=== PATIENT | female | born 1990 | race American Indian/Alaskan Native ===

== ENCOUNTER 2016-08-03 09:15 | Inpatient (IN) | payer MEDICAID ==
--- NOTE | 2016-07-27 14:47 | History and Physical Report ---
History of Present Illness Date of examination: 07/27/16 Date of admission: 08/03/2016 Chief complaint: 25 yo at 39 wk 0d admitted for electiver repeat c/s and BTL. She has chronic HTN but has been on no meds during this except for low dose aspirin for prevention of Pre-eclampsia. [facility] M[facility] , did recieve Rhogam at 28 wk EGA, Rub Im, hx anemia this with most recent Hct 28. Treated for Chlamydia in early with negatve JUAN. GBS done 07/29 and neg. Pt seen and examined DOS and no changes noted. 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 Weight (lb): 272 BMI: 44 BP: 142/ 78 mm Hg Ur. Protein: trace Ur. Glucose: negative Chief Complaint/Current Status: pt presents c/o Missed Period; no c/o's ...................................................................Ina Le December 30, 2015 2:08 PM last depo-provera 2014 last papsmear 6 mos ago @[facility] Menstrual History Regularity: regular Menses every: 28 days Duration: 5 LMP: 10/24/2015 LMP reliability: definite LMP character: normal test type: urine test Date: 12/30/2015 BC at conception: none Planned ? no EDC Calculations LMP: 07/30/2016 EDC Confirmation: 08/10/2016 Gestational Age: 8 weeks Past History : 3 Term Births: 1 Premature Births: 1 Living Children: 2 Para: 2 Mult. Births: 0 Prev : 2 Prev. attempt? 0 Aborta: 0 Elect. Ab: 0 Spont. Ab: 0 Ectopics: 0 # 1 Delivery date: 02/20/2007 Weeks Gestation: 32 labor: no Delivery type: Anesthesia type: general [place] [facility] [place]: Male weight: 3-0 Name: Nolan Comments: eclampsia # 2 Delivery date: 11/27/2008 Weeks Gestation: 39 Delivery type: Anesthesia type: spinal Delivery location: [place] [facility] Sex: Female weight: 5-13 Name: Chino Past Medical History: Hypertension Past Surgical History: (2007) (2008) Past Medical History Surgery (Non-oncologist): (2007) (2008) Abnormal PAP: positive, HPV Uterine Anomaly: negative Social Hx: Rommel Patient is single Infection History Hx of STD: HPV HIV Risk Eval: low risk Hepatitis B Risk Eval: low risk Personal hx. of genital herpes: yes Partner hx. of genital herpes: no Genetic History Congenital Heart Defect: Mom: no Dad: no Yumiko Disease: Mom: no Dad: no Thalassemia Mom: no Dad: no Neural Tube Defect Mom: no Dad: no Down's Syndrome Mom: no Dad: no Han-Sachs Mom: no Dad: no Sickle Cell Disease/Trait Mom: no Dad: no Hemophilia Mom: no Dad: no Muscular Dystrophy Mom: no Dad: no Cystic Fibrosis Mom: no Dad: no [place] Chorea Mom: no Dad: no Mental Retardation Mom: no Dad: no Fragile X Mom: no Dad: no Other Genetic/Chromosomal Disorder Mom: no Dad: no Child w/other defect Mom: no Dad: no Current Allergies: No known allergies Laboratory Results Routine Urinalysis Leukocytes: trace Nitrite: negative Urobilinogen: negative Protein: trace Blood: negative Ketone: trace (5) Bilirubin: negative Glucose: negative Urine HCG: positive Review of Systems General Complains of fatigue. Denies fever, chills, sweats, anorexia, weakness, malaise, weight loss and sleep disorder. Denies vaginal discharge, incontinence, dysuria, hematuria, urinary frequency, amenorrhea, menorrhagia, abnormal vaginal bleeding, pelvic pain, genital sores, decreased libido, painful periods, painful sex, urinary urgency, hot flashes, vaginal dryness, vaginal itching and vaginal odor. CV Denies chest pains, palpitations, syncope, dyspnea on exertion, orthopnea, PND and peripheral edema. Resp Denies cough, dyspnea at rest, excessive sputum, hemoptysis, wheezing and pleurisy. GI Complains of nausea. Denies vomiting, diarrhea, constipation, change in bowel habits, abdominal pain, melena, hematochezia, jaundice, gas/bloating, indigestion/heartburn, dysphagia and odynophagia. Breast Complains of breast pain. Denies left breast lump, right breast lump, nipple discharge, bloody discharge from nipple, abnormal mammogram and breast enlargement. Psych Denies depression, anxiety, irritability and mood swings. PHYSICAL EXAM HEENT: normocephalic, no lesions or deformities pierced tongue Neck/Thyroid: supple, thyroid normal Skin no significant abnormal lesions or rashes .Tatoo(s) are present Chest: respiratory effort normal, clear to auscultation Breasts: skin/areolae normal, no masses, no nipple discharge, no erythema/warmth /tenderness, and axillae normal. 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 Vulva/Vagina: No lesions, normal BUS, normal rugae Cervix: No lesions; no cervical motion tenderness Uterus: unable to palpate due to obesity Adnexae: unable to palpate due to obesity Rectovaginal: exam defered Flowsheet View for Follow-up Visit Estimated weeks of gestation: 8 Weight: 272 Blood pressure: 142 / 78 Urine protein: trace Urine glucose: negative Urine nitrite: negative Medications and Allergies Allergies Allergy/AdvReac Type Severity Reaction Status Date / Time No Known Allergies Allergy Verified 08/03/16 09:27 Home Medications Medication Instructions Recorded Confirmed Last Taken Type No Known Home Medications [No 08/03/16 08/03/16 Unknown History Reported Home Medications] Results All other labs normal. Assessment and Plan - Patient Problems (1) Previous delivery affecting , antepartum Current Visit: Yes Status: Chronic (2) Encounter for sterilization Current Visit: Yes Status: Acute (3) Hypertension affecting in third trimester Current Visit: Yes Status: Chronic (4) Anemia affecting in third trimester Current Visit: Yes Status: Chronic (5) Term Current Visit: Yes Status: Acute
[~2016-08-03 09:15] MED LIST: ANCEF/STERILE WATER 2 GM/20 ML 2 GM/20 ML SYRINGE IV NR; BICITRA PO ONE; LACTATED RINGERS 1,000 ML IV SCH; PEPCID IV ONE; PITOCin/NS 20 UNIT/1000ML DRIP 20 UNITS/1,000 ML BAG IV SCH; REGLAN IV ONE
[2016-08-03] MEDS ORDERED: LACTATED RINGERS 2,000 ML ONE (09:29)
[2016-08-03] MEDS ORDERED: LACTATED RINGERS 1,000 ML ONE (09:31)
[2016-08-03] MEDS ORDERED: PEPCID IV ONE (10:03)
[2016-08-03] MEDS ORDERED: REGLAN IV ONE (10:03)
[2016-08-03] MEDS ORDERED: PITOCin/NS 20 UNIT/1000ML DRIP 20 UNITS/1,000 ML BAG IV SCH ×2 (11:00→14:00)
[2016-08-03] MEDS ORDERED: LACTATED RINGERS 1,000 ML IV SCH (11:00)
[2016-08-03 11:01] LABS: Eosinophils % (Auto) 0.6 % (0.0-4.3)
[2016-08-03 11:03] LABS: Hematocrit 26.9 % (30.3-42.9); Mean Corpuscular Volume 65 fl (79-97); Red Blood Count 4.16 M/mm3 (3.65-5.03); White Blood Count 9.1 K/mm3 (4.5-11.0)
[2016-08-03 11:04] LABS: Basophils % (Auto) 0.2 % (0.0-1.8); Mean Corpuscular HGB Conc 30 % (30-34); Mean Corpuscular Hemoglobin 19 pg (28-32); Mean Platelet Volume 8.8 fl (6-12); Platelet Count 289 K/mm3 (140-440); Red Cell Distribution Width 18.3 % (13.2-15.2)
[2016-08-03] MEDS ORDERED: ZOVIRAX 500 MG in NACL 0.9% 100 ML IV ONE (11:06)
[2016-08-03] MEDS ORDERED: GELFOAM POWDER 1GM MM ONE (11:13)
[2016-08-03] MEDS ORDERED: ANCEF/STERILE WATER 2 GM/20 ML 2 GM/20 ML SYRINGE IV ONE (11:14)
[2016-08-03] MEDS ORDERED: BICITRA ONE (11:14)
--- NOTE | 2016-08-03 11:14 | Anesthesia Consultation ---
Anesthesia Consult and Med Hx - Airway Anesthetic Teeth Evaluation: Poor (broken upper and lower on right and left) - Pulmonary Exam CTA: Yes - Cardiac Exam Cardiac Exam: RRR - Pre-Operative Health Status ASA Pre-Surgery Classification: ASA3 Proposed Anesthetic Plan: Epidural, Spinal (Patient has had blocks with previous c-sections - combined is planned) - Pulmonary Hx Asthma: No COPD: No Hx Pneumonia: No - Cardiovascular System Hx Hypertension: Yes (history - watched during - not on meds) - Endocrine Hx End Stage Renal Disease: No - Additional Comments Anesthesia Medical History Comments: patient has had 2 c-sections in past with regional anesthesia platelets are 289
[2016-08-03] MEDS ORDERED: THROMBIN (BOVINE) TP ONE ×3 (11:15→14:00)
--- NOTE | 2016-08-03 11:15 | Anesthesia Day of Surgery ---
Anesthesia Day of Surgery - Day of Surgery Patient Examined: Yes Patient H&P Reviewed: Yes Patient is NPO: Yes
[2016-08-03] MEDS ORDERED: MORPHINE ONE (11:18)
[2016-08-03] MEDS ORDERED: ANCEF/STERILE WATER 2 GM/20 ML IV ONE (11:43)
[2016-08-03] MEDS ORDERED: WATER FOR IRRIG STERILE IR ONE (11:50)
[2016-08-03] MEDS ORDERED: NACL 0.9% IR ONE (11:50)
[2016-08-03] MEDS ORDERED: NACL 0.9% 100 ML ONE (12:06)
[2016-08-03] MEDS ORDERED: NEO SYNEPHRINE ONE (12:06)
--- NOTE | 2016-08-03 13:07 | Operative Report ---
Operative Report Operative Report: Date of Procedure: 08/03/2016 Procedure name(s): Repeat transverse low segment section and bilateral tubal ligation Pre-operative diagnosis: Intrauterine at 39 weeks gestation, elective sterilization Post-operative diagnosis: Same Surgeon: Martha Wakefield M.D. Infrastructure Manager: NEMESIO Anesthesia: Spinal EBL: 500 mL : 6 lbs. 8 oz. female with Apgars of 8 and 9 Time of : Findings Normal tubes, uterus and ovaries except for 2 small paraovarian cysts, which were both bovied and removed Procedure The patient was taken to the operating room and after adequate anesthesia was obtained she was placed in the supine position in left lateral tilt. Sequential compression devices were in place on both lower extremities and a Staley catheter was placed in a sterile fashion. The abdomen was then prepped and draped in the usual fashion. Surgical time-out was done with the entire OR team attentive. A Pfannenstiel incision was made with a scalpel and sharp dissection was carried down through all layers of the abdomen in the usual fashion. The abdomen was entered bluntly and the lower uterine segment was identified. The presenting part was palpated and a bladder flap was created with the Metzenbaum scissors. The scalpel was used to incise the uterus in a transverse fashion and this incision was extended bluntly with finger traction and the membranes were ruptured. My hand was inserted into the uterus. The vertex was grasped, rotated to an OA presentation and delivered with a combination of traction and fundal pressure. The cord was clamped and cut and a viable was suctioned and handed off to the attending NICU staff and was a 6#8oz female with Apgars of 8 and 9. The placenta was removed manually, the interior of the uterus was cleansed with moist lap packs and the uterus was exteriorized. The uterine incision was closed with a double imbricating layer of 0 Vicryl suture in a running fashion. Hemostasis was adequate and the uterus was returned to the abdomen. Uterus was well contracted. Tubal ligation was performed by in turn grasping midportion of each fallopian tube and creating a knuckle which was doubly tied off with 0 plain suture. The knuckle was excised and handed off for pathological examination. The stasis was adequate. The abdomen was then closed in layers: the rectus muscles were closed with several [id number] sutures of 0 Vicryl, the fascia was closed with running sutures of 0 Vicryl starting at both side corners in turn and tied together in the midline. The subcutaneous tissue was irrigated and then closed with several interrupted sutures of 2-0 plain and the skin was closed with a running subcuticular suture of 4-0 Vicryl. Sponge and Lap count correct X 3, estimated blood loss was 500 mL and the Staley was draining clear urine. The patient tolerated the procedure well and was discharged to PACU in good condition.
[2016-08-03] MEDS ORDERED: LANSINOH TP PRN (13:11)
[2016-08-03] MEDS ORDERED: TUCKS PAD TP PRN (13:11)
[2016-08-03] MEDS ORDERED: TYLENOL PO PRN (13:11)
[2016-08-03] MEDS ORDERED: TORADOL IV PRN (13:11)
[2016-08-03] MEDS ORDERED: NARCAN 0.4 MG/1 ML IV PRN (13:11)
[2016-08-03] MEDS ORDERED: MORPHINE IV PRN ×2 (13:11)
[2016-08-03] MEDS ORDERED: DILAUDID IV PRN (13:19)
[2016-08-03] MEDS ORDERED: ZOFRAN IV PRN (13:19)
[2016-08-03] MEDS ORDERED: TORADOL IV ONE (13:21)
[2016-08-03] MEDS ORDERED: BICITRA PO ONE (14:00)
[2016-08-03] MEDS ORDERED: D5LR 1,000 ML IV SCH (14:00)
[2016-08-03] MEDS ORDERED: ANCEF/NS 1 GM/50 ML 1 GM/50 ML BAG IV SCH (14:00)
[2016-08-03] MEDS ORDERED: ANCEF/STERILE WATER 2 GM/20 ML IV NR (14:00)
[2016-08-03] MEDS ORDERED: fentaNYL-BUPIV 2 MCG/ML-0.125% 200 MCG/100 ML BAG EPIDURAL SCH (14:00)
[2016-08-03] MEDS ORDERED: SODIUM CHLORIDE FLUSH SYRINGE 10 ML IV NR (14:00)
--- NOTE | 2016-08-03 14:17 | Operative Report ---
Operative Report Operative Report: C/S EBL 500 femail 09/16 weighed 6#8oz 2951 gm
[2016-08-03] MEDS: ZOVIRAX PO SCH ×2 (15:30→21:25)
[2016-08-03] MEDS: ANCEF/NS 1 GM/50 ML 1 GM/50 ML BAG IV SCH (21:24)
[2016-08-04 02:25] LABS: Hematocrit 23.2 % (30.3-42.9); Hemoglobin 7.1 gm/dl (10.1-14.3)
[2016-08-04] MEDS: ANCEF/NS 1 GM/50 ML 1 GM/50 ML BAG IV SCH (05:27)
[2016-08-04] MEDS: PERCOCET 5/325 PO PRN ×2 (05:28→17:36)
--- NOTE | 2016-08-04 06:34 | Progress Note ---
Assessment and Plan - Patient Problems (1) delivery delivered Onset Date: 08/03/16 Current Visit: Yes Status: Acute Plan to address problem: Pt w/o complaint VSS FF below umb Lochia small Dressing D&I H&H 08/30 chronic anemia Drop r/t blood loss from surgery Pt is asymptomatic Doing well s/p r c/s with tubal P: continue pathway Adv diet and activity Iron po started Subjective - Subjective Date of service: 08/04/16 (no c/o voiced) Principal diagnosis: Day # 1 s/p section Patient reports: appetite normal, voiding normally, pain well controlled, ambulating normally : doing well Objective - Vital Signs Latest vital signs: Vital Signs Temp Pulse Pulse Pulse Resp BP BP 08/03/16 23:40 98.3 F 72 72 20 08/03/16 20:30 98.5 F 67 67 20 08/03/16 16:20 98.2 F 70 70 18 08/03/16 14:35 97 F L 52 L 52 L 18 08/03/16 14:06 97.6 F 52 L 11 L 120/88 08/03/16 14:00 57 L 10 L 120/88 08/03/16 13:56 53 L 16 120/88 08/03/16 13:50 52 L 19 114/68 08/03/16 13:46 52 L 18 114/68 08/03/16 13:40 48 L 18 117/65 08/03/16 13:35 51 L 19 120/68 08/03/16 13:30 60 16 106/61 08/03/16 13:25 63 13 106/61 08/03/16 13:20 53 L 15 119/61 08/03/16 13:15 56 L 15 110/62 08/03/16 13:10 55 L 19 112/59 08/03/16 13:08 97.6 F 62 18 105/65 08/03/16 13:05 08/03/16 11:16 77 08/03/16 11:15 77 08/03/16 11:14 77 08/03/16 11:13 76 08/03/16 11:12 72 08/03/16 11:11 72 08/03/16 11:10 69 08/03/16 11:09 74 08/03/16 11:08 78 08/03/16 11:07 80 08/03/16 11:06 75 08/03/16 11:05 68 08/03/16 11:04 68 08/03/16 11:03 64 08/03/16 11:02 84 08/03/16 11:01 89 08/03/16 11:00 91 H 08/03/16 10:59 70 08/03/16 10:58 68 08/03/16 10:57 69 08/03/16 10:56 69 08/03/16 10:55 68 08/03/16 10:54 72 08/03/16 10:53 72 08/03/16 10:52 73 08/03/16 10:51 73 08/03/16 10:50 72 08/03/16 10:49 76 08/03/16 10:48 71 08/03/16 10:47 70 08/03/16 10:46 70 08/03/16 10:45 62 08/03/16 10:44 75 08/03/16 10:43 77 08/03/16 10:42 64 08/03/16 10:41 70 08/03/16 10:40 67 08/03/16 10:39 74 08/03/16 10:38 80 08/03/16 10:37 71 08/03/16 10:36 70 08/03/16 10:35 72 08/03/16 10:34 76 08/03/16 10:33 72 08/03/16 10:32 78 08/03/16 10:31 83 08/03/16 10:30 67 08/03/16 10:29 67 08/03/16 10:28 65 08/03/16 10:27 71 08/03/16 10:26 70 08/03/16 10:25 64 08/03/16 10:24 66 08/03/16 10:23 68 08/03/16 10:22 70 08/03/16 10:21 70 08/03/16 10:20 68 08/03/16 10:19 68 08/03/16 10:18 72 08/03/16 10:17 65 08/03/16 10:16 73 08/03/16 10:15 76 08/03/16 10:14 76 08/03/16 10:13 70 08/03/16 10:12 73 08/03/16 10:11 72 08/03/16 10:10 78 08/03/16 10:09 79 08/03/16 10:08 79 08/03/16 10:07 70 08/03/16 10:06 78 08/03/16 10:05 74 08/03/16 10:04 64 08/03/16 10:03 79 08/03/16 10:02 65 08/03/16 10:01 72 08/03/16 10:00 90 08/03/16 09:59 74 08/03/16 09:58 78 08/03/16 09:57 75 08/03/16 09:56 78 08/03/16 09:55 76 08/03/16 09:54 75 08/03/16 09:53 72 08/03/16 09:52 77 08/03/16 09:51 72 08/03/16 09:50 104 H 08/03/16 09:49 86 08/03/16 09:48 82 08/03/16 09:47 84 08/03/16 09:46 75 08/03/16 09:45 75 08/03/16 09:44 79 08/03/16 09:43 76 08/03/16 09:42 98.1 F 81 84 20 127/66 08/03/16 09:41 81 08/03/16 09:40 79 127/66 BP Pulse Ox 08/03/16 23:40 133/79 08/03/16 20:30 138/74 08/03/16 16:20 126/62 08/03/16 14:35 137/74 08/03/16 14:06 08/03/16 14:00 100 08/03/16 13:56 100 08/03/16 13:50 99 08/03/16 13:46 100 08/03/16 13:40 100 08/03/16 13:35 100 08/03/16 13:30 99 08/03/16 13:25 100 08/03/16 13:20 100 08/03/16 13:15 100 08/03/16 13:10 100 08/03/16 13:08 08/03/16 13:05 100 08/03/16 11:16 98 08/03/16 11:15 98 08/03/16 11:14 99 08/03/16 11:13 99 08/03/16 11:12 95 08/03/16 11:11 99 08/03/16 11:10 99 08/03/16 11:09 99 08/03/16 11:08 99 08/03/16 11:07 99 08/03/16 11:06 99 08/03/16 11:05 98 08/03/16 11:04 99 08/03/16 11:03 98 08/03/16 11:02 99 08/03/16 11:01 99 08/03/16 11:00 94 08/03/16 10:59 98 08/03/16 10:58 98 08/03/16 10:57 99 08/03/16 10:56 98 08/03/16 10:55 99 08/03/16 10:54 99 08/03/16 10:53 98 08/03/16 10:52 97 08/03/16 10:51 98 08/03/16 10:50 98 08/03/16 10:49 99 08/03/16 10:48 99 08/03/16 10:47 98 08/03/16 10:46 99 08/03/16 10:45 99 08/03/16 10:44 99 08/03/16 10:43 98 08/03/16 10:42 98 08/03/16 10:41 99 08/03/16 10:40 99 08/03/16 10:39 99 08/03/16 10:38 99 08/03/16 10:37 99 08/03/16 10:36 99 08/03/16 10:35 99 08/03/16 10:34 99 08/03/16 10:33 99 08/03/16 10:32 98 08/03/16 10:31 98 08/03/16 10:30 99 08/03/16 10:29 99 08/03/16 10:28 99 08/03/16 10:27 99 08/03/16 10:26 98 08/03/16 10:25 99 08/03/16 10:24 98 08/03/16 10:23 99 08/03/16 10:22 99 08/03/16 10:21 99 08/03/16 10:20 99 08/03/16 10:19 99 08/03/16 10:18 98 08/03/16 10:17 98 08/03/16 10:16 99 08/03/16 10:15 98 08/03/16 10:14 99 08/03/16 10:13 99 08/03/16 10:12 98 08/03/16 10:11 99 08/03/16 10:10 99 08/03/16 10:09 99 08/03/16 10:08 99 08/03/16 10:07 99 08/03/16 10:06 99 08/03/16 10:05 98 08/03/16 10:04 99 08/03/16 10:03 98 08/03/16 10:02 98 08/03/16 10:01 98 08/03/16 10:00 98 08/03/16 09:59 98 08/03/16 09:58 99 08/03/16 09:57 99 08/03/16 09:56 99 08/03/16 09:55 98 08/03/16 09:54 98 08/03/16 09:53 98 08/03/16 09:52 98 08/03/16 09:51 97 08/03/16 09:50 99 08/03/16 09:49 97 08/03/16 09:48 97 08/03/16 09:47 98 08/03/16 09:46 99 08/03/16 09:45 96 08/03/16 09:44 98 08/03/16 09:43 97 08/03/16 09:42 98 08/03/16 09:41 99 08/03/16 09:40 96 Intake and Output 08/03/16 08/03/16 08/04/16 14:59 22:59 06:59 Intake Total 2100 1500 240 Output Total 450 650 Balance 1650 850 240 Intake: IV 2100 300 ANCEF/NS 1 GM/50 ML 1 gm 50 In 50 ml @ 100 mls/hr IV Q8H ROB Rx#:[id number] D5lr 1,000 ml @ 125 mls/ 250 hr IV DIRECT ROB Rx#: [id number] Oral 1200 240 Output: Urine 450 650 Indwelling Catheter 650 Other: Total, Intake Amount 240 240 Total, Output Amount 300 Weight 261 lb Estimated Blood Loss 500 Patient Weight 08/04/16 06:59 Weight 261 lb - Exam Breasts: Present: normal Cardiovascular: Present: Regular rate Lungs: Present: Clear to auscultation, Normal air movement Abdomen: Present: normal appearance, soft, normal bowel sounds Vulva: both: normal Uterus: Present: normal, firm, fundal height below umbilicus Extremities: Present: normal Deep Tendon Reflex Grade: Normal +2 Incision: Present: dry, intact, dressed - Labs Labs: Abnormal lab results 08/03/16 08/04/16 Range/Units 09:45 01:40 Hgb 8.0 L 7.1 L (10.1-14.3) gm/dl Hct 26.9 L 23.2 L (30.3-42.9) % MCV 65 L (79-97) fl MCH 19 L (28-32) pg RDW 18.3 H (13.2-15.2) %
[2016-08-04] MEDS: FEOSOL PO SCH ×2 (09:21→22:04)
[2016-08-04] MEDS: ZOVIRAX PO SCH ×2 (09:21→22:04)
[2016-08-04] MEDS: COLACE PO SCH ×2 (09:21→22:04)
[2016-08-04] MEDS: MOTRIN PO PRN ×2 (09:22→22:08)
[2016-08-04] MEDS ORDERED: BOOSTRIX IM ONE (13:13)
[2016-08-05] MEDS: PERCOCET 5/325 PO PRN ×2 (05:53→14:10)
--- NOTE | 2016-08-05 08:47 | Progress Note ---
Assessment and Plan Patient doing well, requests d/c home today. Asymptomatic for anemia, preexisting prior to delivery. VSSAF expect for one outlier 155/86. Lochia scant , incision D&I. Plan for d/c home with routine f/u in office in 1 week. - Patient Problems (1) delivery delivered Onset Date: 08/03/16 Current Visit: Yes Status: Acute (2) Anemia affecting in third trimester Current Visit: Yes Status: Chronic Plan to address problem: PO FE Subjective - Subjective Date of service: 08/05/16 Principal diagnosis: Day # 2 s/p section Patient reports: appetite normal, voiding normally, pain well controlled, flatus , ambulating normally, no dizzy ambulation, no nauseated [place]: doing well, bottle feeding Objective - Vital Signs Latest vital signs: Vital Signs Temp Pulse Pulse Resp BP 08/05/16 05:53 20 08/05/16 00:25 98.0 F 79 79 20 126/79 08/04/16 22:08 18 08/04/16 17:50 99.1 F 76 76 20 155/86 08/04/16 08:55 98.6 F 73 73 18 113/62 Intake and Output 08/04/16 08/05/16 08/05/16 22:59 06:59 14:59 Intake Total 240 480 Balance 240 480 Intake: Oral 240 480 Other: Total, Intake Amount 240 240 # Voids Void 1 1 - Exam Breasts: Present: normal Cardiovascular: Present: Regular rate Lungs: Present: Clear to auscultation, Normal air movement Abdomen: Present: normal appearance, soft, normal bowel sounds Uterus: Present: normal, firm Extremities: Present: normal Deep Tendon Reflex Grade: Normal +2 Incision: Present: normal, dry, intact
--- NOTE | 2016-08-05 08:49 | Discharge Summary ---
Providers - Providers Date of Admission: 08/03/16 09:15 Date of discharge: 08/05/16 (desires d/c home today) Attending physician: CAMILA TEIXEIRA Primary care physician: MITCHELL WALDRON MD Hospitalization Reason for admission: section Delivery: Procedure: repeat low transverse Incision: normal, dry, intact Other procedures: none complications: none Discharge diagnosis: IUP at term delivered baby: female Hospital course: uncomplicated repeat c/s with TL Condition at discharge: Good Disposition: DC-01 TO HOME OR SELFCARE - Discharge Diagnoses (1) delivery delivered Status: Acute (2) Anemia affecting in third trimester Status: Chronic Plan - Discharge Medications Prescriptions: Docusate Sodium [Colace] 100 mg PO BID PRN #60 capsule PRN Reason: Constipation Ferrous Sulfate [Feosol 325 MG tab] 325 mg PO BID #60 tablet Ibuprofen [Motrin 800 MG tab] 800 mg PO Q8HR PRN #30 tablet PRN Reason: Pain oxyCODONE /ACETAMINOPHEN [Percocet 5/325 mg] 1 - 2 tab PO Q4HR PRN #30 tab PRN Reason: Pain - Provider Discharge Summary Activity: routine, no sex for 6 weeks, no heavy lifting 4 weeks, no strenuous exercise Diet: routine Instructions: routine Additional instructions: [] Smoking cessation referral if applicable(refer to patient education folder for contact #) [] Refer to [facility] Booklet Call your doctor immediately for: * Fever > 100.5 * Heavy vaginal bleeding ( >1 pad per hour) * Severe persistent headache * Shortness of breath * Reddened, hot, painful area to leg or breast * Drainage or odor from incision. * Keep incision clean and dry at all times and follow doctor's instructions regarding bathing/showering - Follow up plan Follow up: MITCHELL WALDRON MD [Primary Care Provider] - 7 Days PAM CARBAJAL MD [Staff Physician] - 7 Days (Congratulations! Please call [phone] to schedule your incision check in 7 days. Call for any questions or concerns. )
[2016-08-05 12:53] VITALS: BP 156/93
[2016-08-05] MEDS: MOTRIN PO PRN (14:10)
== END 2016-08-05 16:00 | disposition home or self-care (01) | DRG 765 ==
LOC: APU 09:15 → OB 14:41
PROVIDERS: ADMIT Obstetrics & Gynecology; ATTEND Obstetrics & Gynecology
PROC: 10D00Z1 Extraction of Products of Conception, Low, Open Approach (ICD-10-PCS; principal; 2016-08-03)
PROC: 0UL70ZZ Occlusion of Bilateral Fallopian Tubes, Open Approach (ICD-10-PCS; 2016-08-03)
PROC: 3E0334Z Introduction of Serum, Toxoid and Vaccine into Peripheral Vein, Percutaneous Approach (ICD-10-PCS; 2016-08-03)
DX: O34.211 Maternal care for low transverse scar from previous cesarean delivery (principal); O10.92 Unspecified pre-existing hypertension complicating childbirth; O99.02 Anemia complicating childbirth; D64.9 Anemia, unspecified; Z3A.39 39 weeks gestation of pregnancy; Z37.0 Single live birth; Z30.2 Encounter for sterilization
CPT/HCPCS: 36415; 85014; 85018; 85025; 85460; 85461; 86592; 86850; 86900; 86901; 88302; J0133; J0690; J1885; J2270; J2370; J2405; J2590; J2765; J2790; J7120; J7121

== ENCOUNTER 2016-12-24 12:52 | Emergency (ER) | payer SELFPAY ==
[2016-12-24] MEDS ORDERED: NACL 0.9% 500 ML 500 ML IV ONE (13:47)
[2016-12-24 14:16] LABS: Bacteria,Urine 1+ /HPF (Negative); Bilirubin,Urine NEG (Negative); Blood,Urine SM (Negative); Ketones,Urine TR mg/dL (Negative); Leukocyte Esterase,Urine MOD (Negative); Mucus,Urine 2+ /HPF; Nitrite,Urine POS (Negative)
[2016-12-24 14:30] LABS: Hematocrit 24.5 % (30.3-42.9); Hemoglobin 7.3 gm/dl (10.1-14.3); Mean Corpuscular HGB Conc 30 % (30-34); Red Blood Count 4.45 M/mm3 (3.65-5.03); White Blood Count 10.5 K/mm3 (4.5-11.0)
[2016-12-24 14:33] LABS: Mean Corpuscular Hemoglobin 16 pg (28-32); Mean Corpuscular Volume 55 fl (79-97); Platelet Count 250 K/mm3 (140-440); Red Cell Distribution Width 20.6 % (13.2-15.2)
[2016-12-24 14:34] LABS: Basophils % (Auto) 0.1 % (0.0-1.8)
[2016-12-24 14:39] LABS: Alanine Aminotransferase 9 units/L (7-56); Albumin 3.9 g/dL (3.9-5); Albumin/Globulin Ratio 1.2 %; Alkaline Phosphatase 55 units/L (35-129); Anion Gap 20 mmol/L; BUN/Creatinine Ratio 11; Blood Urea Nitrogen 9 mg/dL (7-17); Calcium 8.5 mg/dL (8.4-10.2); Carbon Dioxide 22 mmol/L (22-30); Chloride 95.7 mmol/L (98-107); Glucose 85 mg/dL (65-100); Potassium 3.4 mmol/L (3.6-5.0); Sodium 134 mmol/L (137-145); Total Protein 7.2 g/dL (6.3-8.2)
[2016-12-24 14:40] LABS: INR 1.16 (0.87-1.13)
[2016-12-24] MEDS ORDERED: TYLENOL ONE (14:42)
[2016-12-24] MEDS ORDERED: TYLENOL PO ONE ×2 (14:52→17:46)
[2016-12-24] MEDS ORDERED: TORADOL IV ONE (17:46)
[2016-12-24] MEDS ORDERED: NACL 0.9% 1000 ML 2,000 ML IV ONE (17:46)
[2016-12-24] MEDS ORDERED: NACL 0.9% 1000 ML 1,000 ML IV ONE (17:52)
--- NOTE | 2016-12-24 17:52 | Emergency Department Report ---
ED General Adult HPI - General Chief complaint: Fever Stated complaint: COLD SWEATS, FAINT Time Seen by Provider: 12/24/16 17:37 Source: patient, RN notes reviewed Mode of arrival: Ambulatory Limitations: No Limitations - History of Present Illness Initial comments: This is a 26-year-old female. The patient is previously unknown to this provider. Her primary care doctor is Dr. Najera. She presents to the ER with a complaint of right-sided flank pain, suprapubic pain, chills, sweats, feeling weak. She endorses dysuria, cough, chest wall pain with coughing, lightheadedness and generalized weakness. Her pain does not radiate anywhere. It is constant. It increases with palpation. It decreases with rest. She has no pelvic pain to me that she describes. She has no right lower quadrant pain or left lower quadrant pain. -: Gradual, days(s) Location: back, abdomen Severity scale (0 -10): 10 Quality: aching Consistency: constant Improves with: none Worsens with: none Associated Symptoms: chest pain, cough, fever/chills, loss of appetite, malaise , weakness. denies: confusion - Related Data Previous Rx's Medication Instructions Recorded Last Taken Type Ibuprofen [Motrin 800 MG tab] 800 mg PO Q8HR PRN #30 tablet 08/03/16 Unknown Rx oxyCODONE /ACETAMINOPHEN [Percocet 1 - 2 tab PO Q4HR PRN #30 tab 08/03/16 Unknown Rx 5/325 mg] Docusate Sodium [Colace] 100 mg PO BID PRN #60 capsule 08/04/16 Unknown Rx Ferrous Sulfate [Feosol 325 MG tab] 325 mg PO BID #60 tablet 08/04/16 Unknown Rx Acetaminophen [Tylenol Arthritis] 650 mg PO Q6HR PRN #30 tablet.er 12/24/16 Unknown Rx Ibuprofen [Motrin] 600 mg PO Q8H PRN #30 tablet 12/24/16 Unknown Rx Levofloxacin [Levaquin] 750 mg PO QDAY #10 tablet 12/24/16 Unknown Rx Metoclopramide [Reglan] 10 mg PO QID PRN #30 tablet 12/24/16 Unknown Rx Allergies Allergy/AdvReac Type Severity Reaction Status Date / Time No Known Allergies Allergy Verified 08/03/16 09:27 ED Review of Systems ROS: Stated complaint: COLD SWEATS, FAINT Other details as noted in HPI Constitutional: fever, malaise ENT: denies: epistaxis Respiratory: denies: cough Cardiovascular: denies: chest pain Gastrointestinal: abdominal pain Genitourinary: dysuria Musculoskeletal: back pain Skin: denies: lesions Neurological: weakness ED Past Medical Hx - Past Medical History Hx Hypertension: Yes (history - watched during - not on meds) Hx Congestive Heart Failure: No Hx Diabetes: No Hx Deep Vein Thrombosis: No Hx Renal Disease: No Hx Sickle Cell Disease: No Hx Seizures: Yes Hx Asthma: No Hx COPD: No Hx HIV: No - Social History Smoking Status: Never Smoker Substance Use Type: None - Medications Home Medications: Home Medications Medication Instructions Recorded Confirmed Last Taken Type Ibuprofen [Motrin 800 MG tab] 800 mg PO Q8HR PRN #30 tablet 08/03/16 Unknown Rx oxyCODONE /ACETAMINOPHEN [Percocet 1 - 2 tab PO Q4HR PRN #30 tab 08/03/16 Unknown Rx 5/325 mg] Docusate Sodium [Colace] 100 mg PO BID PRN #60 capsule 08/04/16 Unknown Rx Ferrous Sulfate [Feosol 325 MG tab] 325 mg PO BID #60 tablet 08/04/16 Unknown Rx Acetaminophen [Tylenol Arthritis] 650 mg PO Q6HR PRN #30 tablet.er 12/24/16 Unknown Rx Ibuprofen [Motrin] 600 mg PO Q8H PRN #30 tablet 12/24/16 Unknown Rx Levofloxacin [Levaquin] 750 mg PO QDAY #10 tablet 12/24/16 Unknown Rx Metoclopramide [Reglan] 10 mg PO QID PRN #30 tablet 12/24/16 Unknown Rx ED Physical Exam - General Limitations: No Limitations General appearance: alert, in no apparent distress - Head Head exam: Present: atraumatic, normocephalic - Eye Eye exam: Present: normal appearance, EOMI, other (visual acuity intact to finger counting, color perception, reading at a close distance). Absent: nystagmus - ENT ENT exam: Present: normal exam, normal orophraynx, mucous membranes moist, TM's normal bilaterally, normal external ear exam - Neck Neck exam: Present: normal inspection, full ROM. Absent: tenderness, meningismus - Respiratory Respiratory exam: Present: normal lung sounds bilaterally, chest wall tenderness. Absent: respiratory distress, accessory muscle use - Cardiovascular Cardiovascular Exam: Present: normal rhythm, tachycardia, normal heart sounds. Absent: systolic murmur, diastolic murmur, rubs, gallop - GI/Abdominal GI/Abdominal exam: Present: soft, tenderness (there is suprapubic tenderness to deep palpation), normal bowel sounds. Absent: distended, guarding, rebound, rigid, pulsatile mass - External exam: Present: normal external exam Speculum exam: Present: normal speculum exam. Absent: cervical discharge, vaginal bleeding Bi-manual exam: Present: normal bi-manual exam, other (escorted by ER machining technician MATTHIAS RODRIGUEZ). Absent: cervical motion tendernes, adnexal tenderness, adnexal mass - Extremities Exam Extremities exam: Present: normal inspection, full ROM, normal capillary refill. Absent: pedal edema, joint swelling, calf tenderness - Back Exam Back exam: Present: normal inspection, CVA tenderness (R). Absent: CVA tenderness (L), paraspinal tenderness, vertebral tenderness - Neurological Exam Neurological exam: Present: alert, oriented X3, normal gait, other (Extraocular movements intact. Tongue midline. No facial droop. Facial sensation intact to light touch in the V1, V2, V3 distribution bilaterally. 5 and 5 strength in 4 extremities.. Sensation is intact to light touch in 4 extremities.). Absent : motor sensory deficit - Psychiatric Psychiatric exam: Present: normal affect, normal mood - Skin Skin exam: Present: warm, dry, intact, normal color. Absent: rash ED Course Vital Signs 12/24/16 12/24/16 12/24/16 12:56 13:02 14:53 Temperature 102 F H Pulse Rate 119 H 110 H Respiratory 18 18 Rate Blood Pressure 156/88 156/88 Blood Pressure [Left] O2 Sat by Pulse 100 100 Oximetry 12/24/16 19:00 Temperature 99.1 F Pulse Rate 89 Respiratory 16 Rate Blood Pressure Blood Pressure 110/62 [Left] O2 Sat by Pulse 100 Oximetry - Reevaluation(s) Reevaluation #1: 12/24/16 19:05 Differential diagnosis, including but not limited to: Urinary tract infection, dehydration, pyelonephritis Assessment and plan: 26-year-old female with flank pain, suprapubic pain, endorsing irritative urinary symptoms, most likely has pyelonephritis. He is febrile and tachycardic, but clinically well appearing and tolerating liquid feeds Her gynecologic exam is benign. Extensive discussion had with the patient. Discussed risks, benefits of CT scan of the abdomen and pelvis. I explained to the patient that I thought clinically she most likely had a pyelonephritis. Patient was in agreement, and does not want a CAT scan of concern for radiation , we have reached this through shared decision making The patient will be treated with IV fluids, pain medication, antibiotic therapy. X-ray of the chest was negative, EKG was unremarkable with the exception of high left ventricular voltage, low risk by JOLANTA score, low risk by heart score, no pulmonary embolus or DVT risk factors. Troponin is negative times one, therefore pericarditis and myocarditis very unlikely given 3 days of symptoms. Lactic acid was also unremarkable. 12/24/16 19:07 Reevaluation #2: 12/24/16 19:09 Blood cultures were sent prior to my arrival/evaluation. The patient's abnormal vital signs have resolved. She feels improved. The patient is suitable for a trial of outpatient antibiotics. Her fevers and chills that she is describing are most likely consistent with a history of simple pyelonephritis. Given her well appearance, normalization of vital signs, I think bacteremia is unlikely. ED Medical Decision Making - Lab Data Result diagrams: 12/24/16 13:57 12/24/16 13:57 Vital Signs 12/24/16 12/24/16 12/24/16 12:56 13:02 14:53 Temperature 102 F H Pulse Rate 119 H 110 H Respiratory 18 18 Rate Blood Pressure 156/88 156/88 Blood Pressure [Left] O2 Sat by Pulse 100 100 Oximetry 12/24/16 19:00 Temperature 99.1 F Pulse Rate 89 Respiratory 16 Rate Blood Pressure Blood Pressure 110/62 [Left] O2 Sat by Pulse 100 Oximetry Lab Results 12/24/16 12/24/16 12/24/16 Range/Units 13:57 13:57 13:57 WBC 10.5 (4.5-11.0) K/mm3 RBC 4.45 (3.65-5.03) M/mm3 Hgb 7.3 L (10.1-14.3) gm/dl Hct 24.5 L (30.3-42.9) % MCV 55 L (79-97) fl MCH 16 L (28-32) pg MCHC 30 (30-34) % RDW 20.6 H (13.2-15.2) % Plt Count 250 (140-440) K/mm3 Lymph % (Auto) 17.5 (13.4-35.0) % [place] % (Auto) 9.2 H (0.0-7.3) % Eos % (Auto) 0.0 (0.0-4.3) % Baso % (Auto) 0.1 (0.0-1.8) % Lymph # 1.8 (1.2-5.4) K/mm3 [place] # 1.0 H (0.0-0.8) K/mm3 Eos # 0.0 (0.0-0.4) K/mm3 Baso # 0.0 (0.0-0.1) K/mm3 Seg Neutrophils % 73.2 H (40.0-70.0) % Seg Neutrophils # 7.7 (1.8-7.7) K/mm3 PT 15.4 H (12.2-14.9) Sec. INR 1.16 H (0.87-1.13) VBG pH (7.320-7.420) Sodium 134 L (137-145) mmol/L Potassium 3.4 L (3.6-5.0) mmol/L Chloride 95.7 L (98-107) mmol/L Carbon Dioxide 22 (22-30) mmol/L Anion Gap 20 mmol/L BUN 9 (7-17) mg/dL Creatinine 0.8 (0.7-1.2) mg/dL Estimated GFR > 60 ml/min BUN/Creatinine Ratio 11 % Glucose 85 (65-100) mg/dL Lactic Acid (0.7-2.0) mmol/L Calcium 8.5 (8.4-10.2) mg/dL Total Bilirubin 1.10 (0.1-1.2) mg/dL AST 14 (5-40) units/L ALT 9 (7-56) units/L Alkaline Phosphatase 55 (35-129) units/L Total Creatine Kinase (30-135) units/L Troponin T (0.00-0.029) ng/mL Total Protein 7.2 (6.3-8.2) g/dL Albumin 3.9 (3.9-5) g/dL Albumin/Globulin Ratio 1.2 % Urine Color (Yellow) Urine Turbidity (Clear) Urine pH (5.0-7.0) Ur Specific [place] (1.003-1.030) Urine Protein (Negative) mg/dL Urine Glucose (UA) (Negative) mg/dL Urine Ketones (Negative) mg/dL Urine Blood (Negative) Urine Nitrite (Negative) Urine Bilirubin (Negative) Urine Urobilinogen (<2.0) mg/dL Ur Leukocyte Esterase (Negative) Urine WBC (Auto) (0.0-6.0) /HPF Urine RBC (Auto) (0.0-6.0) /HPF U Epithel Cells (Auto) (0-13.0) /HPF Urine Bacteria (Auto) (Negative) /HPF Ur Transition Epith Cell /HPF Urine Mucus /HPF Urine HCG, Qual (Negative) 12/24/16 12/24/16 12/24/16 Range/Units 13:57 13:57 14:00 WBC (4.5-11.0) K/mm3 RBC (3.65-5.03) M/mm3 Hgb (10.1-14.3) gm/dl Hct (30.3-42.9) % MCV (79-97) fl MCH (28-32) pg MCHC (30-34) % RDW (13.2-15.2) % Plt Count (140-440) K/mm3 Lymph % (Auto) (13.4-35.0) % [place] % (Auto) (0.0-7.3) % Eos % (Auto) (0.0-4.3) % Baso % (Auto) (0.0-1.8) % Lymph # (1.2-5.4) K/mm3 [place] # (0.0-0.8) K/mm3 Eos # (0.0-0.4) K/mm3 Baso # (0.0-0.1) K/mm3 Seg Neutrophils % (40.0-70.0) % Seg Neutrophils # (1.8-7.7) K/mm3 PT (12.2-14.9) Sec. INR (0.87-1.13) VBG pH 7.387 (7.320-7.420) Sodium (137-145) mmol/L Potassium (3.6-5.0) mmol/L Chloride (98-107) mmol/L Carbon Dioxide (22-30) mmol/L Anion Gap mmol/L BUN (7-17) mg/dL Creatinine (0.7-1.2) mg/dL Estimated GFR ml/min BUN/Creatinine Ratio % Glucose (65-100) mg/dL Lactic Acid 0.70 (0.7-2.0) mmol/L Calcium (8.4-10.2) mg/dL Total Bilirubin (0.1-1.2) mg/dL AST (5-40) units/L ALT (7-56) units/L Alkaline Phosphatase (35-129) units/L Total Creatine Kinase (30-135) units/L Troponin T (0.00-0.029) ng/mL Total Protein (6.3-8.2) g/dL Albumin (3.9-5) g/dL Albumin/Globulin Ratio % Urine Color Monika (Yellow) Urine Turbidity Clear (Clear) Urine pH 5.0 (5.0-7.0) Ur Specific [place] 1.017 (1.003-1.030) Urine Protein 30 mg/dl (Negative) mg/dL Urine Glucose (UA) Neg (Negative) mg/dL Urine Ketones Tr (Negative) mg/dL Urine Blood Sm (Negative) Urine Nitrite Pos (Negative) Urine Bilirubin Neg (Negative) Urine Urobilinogen 4.0 (<2.0) mg/dL Ur Leukocyte Esterase Mod (Negative) Urine WBC (Auto) 144.0 H (0.0-6.0) /HPF Urine RBC (Auto) 17.0 (0.0-6.0) /HPF U Epithel Cells (Auto) 16.0 H (0-13.0) /HPF Urine Bacteria (Auto) 1+ (Negative) /HPF Ur Transition Epith Cell 3 /HPF Urine Mucus 2+ /HPF Urine HCG, Qual (Negative) 12/24/16 12/24/16 12/24/16 Range/Units 14:45 16:35 18:03 WBC (4.5-11.0) K/mm3 RBC (3.65-5.03) M/mm3 Hgb (10.1-14.3) gm/dl Hct (30.3-42.9) % MCV (79-97) fl MCH (28-32) pg MCHC (30-34) % RDW (13.2-15.2) % Plt Count (140-440) K/mm3 Lymph % (Auto) (13.4-35.0) % [place] % (Auto) (0.0-7.3) % Eos % (Auto) (0.0-4.3) % Baso % (Auto) (0.0-1.8) % Lymph # (1.2-5.4) K/mm3 [place] # (0.0-0.8) K/mm3 Eos # (0.0-0.4) K/mm3 Baso # (0.0-0.1) K/mm3 Seg Neutrophils % (40.0-70.0) % Seg Neutrophils # (1.8-7.7) K/mm3 PT (12.2-14.9) Sec. INR (0.87-1.13) VBG pH (7.320-7.420) Sodium (137-145) mmol/L Potassium (3.6-5.0) mmol/L Chloride (98-107) mmol/L Carbon Dioxide (22-30) mmol/L Anion Gap mmol/L BUN (7-17) mg/dL Creatinine (0.7-1.2) mg/dL Estimated GFR ml/min BUN/Creatinine Ratio % Glucose (65-100) mg/dL Lactic Acid 0.60 L (0.7-2.0) mmol/L Calcium (8.4-10.2) mg/dL Total Bilirubin (0.1-1.2) mg/dL AST (5-40) units/L ALT (7-56) units/L Alkaline Phosphatase (35-129) units/L Total Creatine Kinase (30-135) units/L Troponin T < 0.010 (0.00-0.029) ng/mL Total Protein (6.3-8.2) g/dL Albumin (3.9-5) g/dL Albumin/Globulin Ratio % Urine Color (Yellow) Urine Turbidity (Clear) Urine pH (5.0-7.0) Ur Specific [place] (1.003-1.030) Urine Protein (Negative) mg/dL Urine Glucose (UA) (Negative) mg/dL Urine Ketones (Negative) mg/dL Urine Blood (Negative) Urine Nitrite (Negative) Urine Bilirubin (Negative) Urine Urobilinogen (<2.0) mg/dL Ur Leukocyte Esterase (Negative) Urine WBC (Auto) (0.0-6.0) /HPF Urine RBC (Auto) (0.0-6.0) /HPF U Epithel Cells (Auto) (0-13.0) /HPF Urine Bacteria (Auto) (Negative) /HPF Ur Transition Epith Cell /HPF Urine Mucus /HPF Urine HCG, Qual Negative (Negative) 12/24/16 Range/Units 18:03 WBC (4.5-11.0) K/mm3 RBC (3.65-5.03) M/mm3 Hgb (10.1-14.3) gm/dl Hct (30.3-42.9) % MCV (79-97) fl MCH (28-32) pg MCHC (30-34) % RDW (13.2-15.2) % Plt Count (140-440) K/mm3 Lymph % (Auto) (13.4-35.0) % [place] % (Auto) (0.0-7.3) % Eos % (Auto) (0.0-4.3) % Baso % (Auto) (0.0-1.8) % Lymph # (1.2-5.4) K/mm3 [place] # (0.0-0.8) K/mm3 Eos # (0.0-0.4) K/mm3 Baso # (0.0-0.1) K/mm3 Seg Neutrophils % (40.0-70.0) % Seg Neutrophils # (1.8-7.7) K/mm3 PT (12.2-14.9) Sec. INR (0.87-1.13) VBG pH (7.320-7.420) Sodium (137-145) mmol/L Potassium (3.6-5.0) mmol/L Chloride (98-107) mmol/L Carbon Dioxide (22-30) mmol/L Anion Gap mmol/L BUN (7-17) mg/dL Creatinine (0.7-1.2) mg/dL Estimated GFR ml/min BUN/Creatinine Ratio % Glucose (65-100) mg/dL Lactic Acid (0.7-2.0) mmol/L Calcium (8.4-10.2) mg/dL Total Bilirubin (0.1-1.2) mg/dL AST (5-40) units/L ALT (7-56) units/L Alkaline Phosphatase (35-129) units/L Total Creatine Kinase 112 (30-135) units/L Troponin T (0.00-0.029) ng/mL Total Protein (6.3-8.2) g/dL Albumin (3.9-5) g/dL Albumin/Globulin Ratio % Urine Color (Yellow) Urine Turbidity (Clear) Urine pH (5.0-7.0) Ur Specific [place] (1.003-1.030) Urine Protein (Negative) mg/dL Urine Glucose (UA) (Negative) mg/dL Urine Ketones (Negative) mg/dL Urine Blood (Negative) Urine Nitrite (Negative) Urine Bilirubin (Negative) Urine Urobilinogen (<2.0) mg/dL Ur Leukocyte Esterase (Negative) Urine WBC (Auto) (0.0-6.0) /HPF Urine RBC (Auto) (0.0-6.0) /HPF U Epithel Cells (Auto) (0-13.0) /HPF Urine Bacteria (Auto) (Negative) /HPF Ur Transition Epith Cell /HPF Urine Mucus /HPF Urine HCG, Qual (Negative) - EKG Data -: EKG Interpreted by Me EKG shows normal: sinus rhythm - EKG Data 12/24/16 19:08 High left ventricular voltage, sinus, 90 bpm, normal axis, not morphologically consistent with ST elevation myocardial infarction - Radiology Data Radiology results: report reviewed, image reviewed X-ray the chest is negative for acute disease Critical care attestation.: If time is entered above; I have spent that time in minutes in the direct care of this critically ill patient, excluding procedure time. ED Disposition Clinical Impression: Pyelonephritis Disposition: [id number] TO HOME OR SELFCARE Is pt being admited?: No Does the pt Need Aspirin: No Condition: Stable Instructions: Acute Pyelonephritis (ED) Additional Instructions: Cultures were sent today, results will be available in the next 3-5 days. Have a primary care doctor contact the medical records department to obtain culture results. Follow up in 2 days for repeat examination. Patient may return to the ER for a repeat examination/follow-up, or follow-up with a primary care doctor, or urgent care center. Do not consume alcohol for the next 2 weeks. Take the pain medication, nausea medication, antibiotics as needed/directed. Return to the ER right away with lethargy, irritability, projectile vomiting, change in mental status, confusion, inability to tolerate liquid feeds. Prescriptions: Acetaminophen [Tylenol Arthritis] 650 mg PO Q6HR PRN #30 tablet.er PRN Reason: Pain Ibuprofen [Motrin] 600 mg PO Q8H PRN #30 tablet PRN Reason: Pain Levofloxacin [Levaquin] 750 mg PO QDAY #10 tablet Metoclopramide [Reglan] 10 mg PO QID PRN #30 tablet PRN Reason: Nausea Referrals: PRIMARY CARE, [Primary Care Provider] - 3-5 Days RICHIE HASTINGS MD [Staff Physician] - 3-5 Days [facility] [Provider Group] - 3-5 Days Forms: Work/School Release Form(ED)
[2016-12-24] MEDS ORDERED: ROCEPHIN/NS 1 GM/50 ML 1 GM/50 ML BAG IV ONE (19:00)
[2016-12-24 19:05] VITALS: BP 110/62
--- NOTE | 2016-12-25 08:01 | XRay Report ---
Chest 2 views: History: Possible sepsis. Next Findings: Heart size at upper limit of normal. Trachea is midline. No consolidation, pneumothorax or pleural effusion. Impression: No acute cardiopulmonary findings
== END 2016-12-24 20:14 | disposition home or self-care (01) ==
LOC: ED 12:52
DX: N12 Tubulo-interstitial nephritis, not specified as acute or chronic (principal); I10 Essential (primary) hypertension; R53.1 Weakness; R56.9 Unspecified convulsions
CPT/HCPCS: 36415; 71020; 80053; 81001; 81025; 82140; 82550; 82805; 84484; 85025; 85610; 87040; 87086; 87186; 87210; 87591; 93005; 93010; 96361; 96365; 96375; 99285; J0696; J1885; J7030

== ENCOUNTER → 2021-08-23 | Emergency (ER) | payer MEDICAID ==
[~2021-08-23] MED LIST changes: -ANCEF/STERILE WATER 2 GM/20 ML 2 GM/20 ML SYRINGE IV NR; -BICITRA PO ONE; -LACTATED RINGERS 1,000 ML IV SCH; -PEPCID IV ONE; -PITOCin/NS 20 UNIT/1000ML DRIP 20 UNITS/1,000 ML BAG IV SCH; -REGLAN IV ONE; +cloNIDine 0.2 MG TAB PO ONE
[2021-08-23 14:52] VITALS: BP 215/120
== END | disposition left against medical advice (07) ==
LOC: ED 12:32
DX: M25.569 Pain in unspecified knee (principal); Z53.21 Procedure and treatment not carried out due to patient leaving prior to being seen by health care provider